=== PATIENT | male | born 1965 | race Caucasian/White ===

== ENCOUNTER → 2020-08-09 11:02 | Outpatient (CLI) | payer OTHER, SELFPAY ==
--- NOTE | 2020-08-09 11:09 | XR_ITS ---
PROCEDURE: XR CHEST 2V CLINICAL HISTORY: Hypoxia COMPARISON: No exams were available for comparison FINDINGS: The cardiomediastinal silhouette and pulmonary vascularity are within normal limits. The lung belcher are well expanded. There is minimal and questionable atelectasis in the right middle lobe. There is no pleural fluid. IMPRESSION: Possible minimal atelectasis right middle lobe otherwise negative chest Dictated by: Dr. Nehemias Lagos MD 08/09/2020 18:04 Dr. Nehemias Lagos MD in [facility] 08/09/2020 18:04
== END ==
PROVIDERS: PCP Family Medicine; Visit Provider Internal Medicine Pulmonary Disease
DX: J44.9 Chronic obstructive pulmonary disease, unspecified (principal)
CPT/HCPCS: 71046

== ENCOUNTER → 2020-08-09 11:49 | Outpatient (CLI) | payer OTHER, SELFPAY ==
[2020-08-09 12:48] LABS: Chloride 108 mmol/L (98-107)
[2020-08-09 12:49] LABS: Potassium 4.3 mmoL/L (3.5-5.1); Sodium 140 mmol/L (136-145)
[2020-08-09 12:51] LABS: Blood Urea Nitrogen 24 mg/dl (9-20); Estimated Glomerular Filt Rate 69 ml/min (>60); GFR (African American) 84 ML/MIN (>60)
[2020-08-09 12:52] LABS: Anion Gap 8.3 mEq/L (5-15); Calcium 9.6 mg/dl (8.4-10.2); Carbon Dioxide 28 mmol/L (22.0-30.0); Glucose 123 mg/dl (74-100)
[2020-08-09 13:15] LABS: Coronavirus 19 IgG Antibody Positive (Negative)
[2020-08-09 13:16] LABS: Coronavirus 19 IgM Antibody Positive (Negative)
== END ==
PROVIDERS: Visit Provider Internal Medicine Pulmonary Disease
DX: R06.00 Dyspnea, unspecified (principal); Z01.818 Encounter for other preprocedural examination; Z20.822 Contact with and (suspected) exposure to COVID-19; Z86.16 Personal history of COVID-19
CPT/HCPCS: 36415; 80048; 86328

== ENCOUNTER → 2020-08-11 08:16 | Outpatient (CLI) | payer BC, SELFPAY ==
--- NOTE | 2020-08-11 08:23 | CT_ITS ---
PROCEDURE: CT ANGIO CHEST CLINCIAL INDICATION: dyspnea Shortness of air, no cough or chest pain. History of mono and pneumonia COMPARISON: DX XR CHEST 2V from 08/09/2020 TECHNIQUE: IV Contrast: 70ML Isovue 370 Axial images obtained with sagittal and coronal reformats. All CT scans at the facility use one or more dose reduction, viz: automated exposure control, ma/kV adjustment per patient size (including targeted exams where dose is matched to indication, i.e. head), or iterative reconstruction technique. FINDINGS: Scattered bilateral infiltrates. There are small areas of consolidation. There is a peripheral distribution which raises possibility of COVID pneumonia. Some areas have a spiculated appearance and CT follow-up following treatment to confirm resolution is recommended. There is no pleural effusion. The thyroid gland is prominent with no obvious abnormalities by CT. There are multiple small nonenlarged lymph nodes in the AP window greater in number than typically seen. There is a prominent subcarinal lymph node enlarged extending to the right of the laura. Major thoracic vasculature is unremarkable. There is minimal enhancement of the structures of the upper abdomen. There is partial visualization of a left renal cystic structure an suspected diverticulosis. Bony structures are unremarkable. IMPRESSION: Bilateral infiltrates with distribution concerning for coated pneumonia. CT follow-up to confirm resolution recommended as discussed above. Dictated by: Zoraida Lima 08/11/2020 10:27 Zoraida Lima in [facility] 08/11/2020 10:27
== END ==
PROVIDERS: PCP Family Medicine; Visit Provider Internal Medicine Pulmonary Disease
DX: R06.00 Dyspnea, unspecified (principal); R79.89 Other specified abnormal findings of blood chemistry
CPT/HCPCS: 71275; Q9967

== ENCOUNTER → 2020-09-07 12:51 | Outpatient (CLI) | payer BC, SELFPAY ==
[2020-09-07 13:35] VITALS: PULSE 64; PULSE 68
== END ==
PROVIDERS: PCP Family Medicine; Visit Provider Internal Medicine Pulmonary Disease
DX: R06.09 Other forms of dyspnea (principal)
CPT/HCPCS: 94060; 94618; 94640; 94726; 94729

== ENCOUNTER 2022-07-14 17:01 | Day surgery (SDC) | payer BC, SELFPAY ==
[2022-07-14] VITALS (11 sets, daily range): BP systolic 110–190; BP diastolic 69–112; PULSE 57–78; RESP 15–19; TEMP 36.9; O2SAT 91–96; BMI 31.6
--- NOTE | 2022-07-14 17:06 | IR_ITS ---
APPROVED REPORT Patient Location: Emergent [facility] Hairer: ETHAN Mcneil RT (R) PROCEDURES Left heart catheterization Left ventriculogram Selective coronary angiogram INDICATION Unstable angina Informed consent was obtained prior to the procedure. COMPLICATIONS None Estimated Blood Loss: Less than 10 ml TECHNIQUE One percent lidocaine used to anesthetize the right anterior aspect of the wrist. The right radial artery was accessed via the Seldinger technique. A 6 Croatian sheath was placed in the right radial artery. 2.5 mg of verapamil, 800 mcg of nitroglycerin, 1mg Lidocaine and 5000 U Heparin were given through the arterial sheath. The papa catheter was also used to perform left heart catheterization, left ventriculogram and selective coronary angiogram. At the end of the procedure the sheath was removed good hemostasis was achieved using Traclet band, patient was transferred to the postop holding area in stable condition. ANGIOGRAPHIC RESULTS The left main artery Normal The left anterior descending artery Mild vascular ectasia accompanied by ANAID II flow The circumflex artery Nondominant normal The right coronary artery Large dominant with mild vascular ectasia accompanied by NAAID II flow The GARCIA ventriculogram reveals Normal 65% The left ventricular end-diastolic pressure 15 mmHg IMPRESSION Mild vascular ectasia accompanied by ANAID II flow consistent with endothelial dysfunction Normal ejection fraction Normal left ventricular and SI pressure PLAN 1. Treatment of endothelial dysfunction 2. Risk factor modification Electronically signed by : Jaswinder Esteban MD 07/14/2022 17:36:19
[2022-07-14 17:29] LABS: Chloride 103 mmol/L (98-107); Potassium 3.2 mmoL/L (3.5-5.1); Sodium 139 mmol/L (136-145)
[2022-07-14 17:32] LABS: Anion Gap 8.2 mEq/L (5-15); Blood Urea Nitrogen 21 mg/dl (9-20); Calcium 8.7 mg/dl (8.4-10.2); Carbon Dioxide 31 mmol/L (22.0-30.0); Creatinine Clearance Estimated 114 mL/min (50-200); Estimated Glomerular Filt Rate 69 ml/min (>60); GFR (African American) 83 ML/MIN (>60); Glucose 86 mg/dl (74-100)
[2022-07-14 17:54] LABS: Basophils # 0.2 K/mm3 (0-0.2); Eosinophils # 0.1 K/mm3 (0.0-0.4); Eosinophils % 1.4 % (0.1-12.0); Hematocrit 50.9 % (42.0-52.0); Hemoglobin 17.4 g/dL (14.1-18.0); Lymphocytes # 2.9 K/mm3 (0.7-4.5); Lymphocytes % 35.3 % (10-50); Mean Corpuscular HGB Conc 34.2 g/dL (31.8-35.4); Mean Corpuscular Hemoglobin 32.1 pg (27.0-31.2); Mean Platelet Volume 7.7 fl (7.4-10.4); Monocytes % 11.7 % (1.7-9.3); Neutrophils # 4.1 K/mm3 (1.8-7.8); Neutrophils % 49.6 % (37.0-80.0); Platelet Count 211 K/mm3 (142-424); Red Blood Count 5.41 M/mm3 (4.60-6.20); Red Cell Distribution Width 13.6 % (11.5-17.5); White Blood Count 8.3 K/mm3 (4.8-10.8)
--- NOTE | 2022-07-14 18:27 | SUR.PHASEII ---
stated that pt is good to be d/c once we get the radial band off, pt did not receive any sedation or stenting
== END 2022-07-14 19:35 | disposition home or self-care (01) ==
PROVIDERS: PCP Family Medicine; Visit Provider Internal Medicine
DX: I11.9 Hypertensive heart disease without heart failure (principal); I25.110 Atherosclerotic heart disease of native coronary artery with unstable angina pectoris; G47.33 Obstructive sleep apnea (adult) (pediatric); R07.9 Chest pain, unspecified
CPT/HCPCS: 80048; 85025; 93458; 99152; C1725; C1760; C1769; J1644; Q9967